=== PATIENT | female | born 1970 | race Caucasian/White ===

== ENCOUNTER 2017-01-09 18:58 | Emergency (ER) | payer BC ==
[~2017-01-09] VITALS: Ht 165.1 cm; Wt 82.5 kg
[2017-01-09 19:42] LABS: HEMATOCRIT 45.5 % (36.0-46.0); MCH 30.5 PG (29.0-34.0); MCHC 33.6 G/DL (30.0-36.0); MCV 90.8 FL (83-99); MEAN PLAT.VOLUME 10.2 uM^3 (9.5-12.4); PLATELET COUNT 257 K/uL (156-360); RBC DIS.WIDTH-CV 13.2 % (11.8-14.6); RED BLOOD COUNT 5.01 M/uL (3.80-5.20); WHITE BLOOD COUNT 7.6 K/uL (4.1-10.2)
[2017-01-09 19:57] LABS: CHLORIDE 105 mEq/L (99-109); POTASSIUM 3.4 mEq/L (3.7-5.4); SODIUM 142 mEq/L (136-147)
[2017-01-09 19:58] LABS: GLUCOSE 90 mg/dL (70-99)
[2017-01-09 20:00] LABS: ANION GAP 9 MEQ/L (2-14)
[2017-01-09 20:02] LABS: GFR ESTIMATE (CALCULATED) > 59 mL/min/
[2017-01-09 20:03] LABS: UREA NITROGEN (BUN) 12 mg/dL (9-23)
[2017-01-09 20:12] LABS: TROP-I INTERPRETATION NEGATIVE; TROPONIN-I 0.04 ng/mL (0.0-0.30)
[2017-01-09 22:21] LABS: TROP-I INTERPRETATION NEGATIVE; TROPONIN-I 0.03 ng/mL (0.0-0.30)
[2017-01-09 23:09] VITALS: BP 135/92
== END 2017-01-09 23:15 | disposition home or self-care (01) ==
LOC: EME 18:58
PROVIDERS: Emergency Medicine
DX: B34.9 Viral infection, unspecified (principal); I20.9 Angina pectoris, unspecified; J45.909 Unspecified asthma, uncomplicated; E78.5 Hyperlipidemia, unspecified; I10 Essential (primary) hypertension; Z87.891 Personal history of nicotine dependence
CPT/HCPCS: 71020; 80048; 84484; 85027; 93005; 99281; 99284